=== PATIENT | female | born 1970 | race African-American/Black ===

== ENCOUNTER 2016-08-19 19:03 | Emergency (ER) | payer OTHER ==
[~2016-08-19] VITALS: Ht 167.6 cm; Wt 148.8 kg
[2016-08-19] MEDS ORDERED: MOBIC15 MG PO ×2 (19:08→19:58)
[2016-08-19] MEDS ORDERED: ZANTAC 150MG T150 MG PO (19:08)
[2016-08-19] MEDS ORDERED: HYDROCHLOROTH12.5 M1 PO (19:09)
[2016-08-19] MEDS ORDERED: LIORESAL 10 MG10 MG PO (19:58)
[2016-08-19] MEDS ORDERED: ZANAFLEX4 MG PO (20:02)
== END 2016-08-19 20:07 | disposition home or self-care (01) ==
LOC: ER 19:03
DX: S16.1XXA Strain of muscle, fascia and tendon at neck level, initial encounter (principal); S80.01XA Contusion of right knee, initial encounter; S40.011A Contusion of right shoulder, initial encounter; I10 Essential (primary) hypertension; V43.52XA Car driver injured in collision with other type car in traffic accident, initial encounter; Y93.I9 Activity, other involving external motion; Y92.488 Other paved roadways as the place of occurrence of the external cause; Y99.9 Unspecified external cause status

== ENCOUNTER → 2018-06-09 | Outpatient (CLI) | payer OTHER ==
[~2018-06-09] MED LIST: BENICAR40 MG PO; HYDROCHLOROTH12.5 M1 PO; LIORESAL 10 MG10 MG PO; MOBIC15 MG PO; TRAMADOL 50 MG50 MG PO; ZANAFLEX4 MG PO; ZANTAC 150MG T150 MG PO
[2018-06-09 08:02] LABS: ABSOLUTE NEUTROPHILS 6.8 thou/uL (1.4-8.2); BASOPHILS 0.7 % (0.0-2.0); EOSINOPHILS 1.7 % (0.0-3.0); HEMATOCRIT 39.9 % (37.0-47.0); HEMOGLOBIN 13.1 gm/dL (12.0-15.0); LYMPHOCYTES 26.8 % (24.0-44.0); MCH 30.4 pg (26.0-34.0); MCV 92.3 fL (80.0-100.0); MONOCYTES 9.3 % (1.0-8.0); PLATELET COUNT 478 thou/uL (150-400); POLYS 61.5 % (36.0-66.0); RBC 4.32 mil/uL (4.20-5.00); RDW 13.4 % (10.5-14.5); WBC 11.1 thou/uL (4.0-11.0)
[2018-06-09 08:41] LABS: ALBUMIN 3.6 g/dL (3.4-5.0); CALCIUM 9.7 mg/dL (8.5-10.1); CREATININE 1.1 mg/dL (0.6-1.0); TOTAL BILIRUBIN 0.9 mg/dL (<0.1-1.0); TOTAL PROTEIN 7.8 g/dL (6.4-8.2)
== END ==
LOC: CV 07:37
PROVIDERS: Surgery
DX: Z01.818 Encounter for other preprocedural examination (principal)

== ENCOUNTER 2018-06-14 05:35 | Inpatient (IN) | payer OTHER ==
--- NOTE | 2018-06-09 08:44 | EKG ---
[place] [address] [facility] [place] [address] ELECTROCARDIOGRAM REPORT Name: SPENCER MALLORY Room #: PRE [facility]..#: [id number] ������������������ Admission: ������������������ Attend Phys: Jamarcus Powell MD, Discharge: ������������������ Date of : 72 Report #: [id number] ����������������������������������������������������������������� [id number] THIS REPORT FOR: //name// [facility] Test Date: 2018-06-09 Test Time: 08:23:58 Pat Name: SPENCER MALLORY Department: Room: Gender: F Stoker Erector: : 1970 Requested By: Jamarcus Powell Order Number: [id number] MD: Kapil Brown Measurements Intervals [place] Rate: 90 P: 85 [place]: 172 QRS: 70 QRSD: 90 T: -13 QT: 436 QTc: 534 Interpretive Statements Sinus rhythm Nonspecific ST and T wave abnormality Prolonged QT interval Compared to ECG 02/17/2003 20:07:56 Nonspecific change in the ST and T-wave segments Prolonged QT interval now present Electronically Signed On 06-09-2018 8:43:54 EDDY CURRENT INSPECTOR by Kapil Brown [email or web address] ��������������������������������������������� <ELECTRONICALLY SIGNED> ���������������������������������������� By: Kapil Brown MD, [facility] ��������������������������������������������� 06/09/18 0843 2 Kapil Brown MD, [facility] /EPI
[~2018-06-14] VITALS: Ht 167.6 cm; Wt 148.1 kg
[2018-06-14 07:41] LABS: HEMATOCRIT 39.7 % (37.0-47.0); HEMOGLOBIN 13.1 gm/dL (12.0-15.0)
[2018-06-14 08:31] VITALS: BP 147/88
[2018-06-14 12:19] VITALS: BP 153/85
[2018-06-14 16:00] VITALS: BP 152/75
[2018-06-14 19:42] VITALS: BP 146/74
--- NOTE | 2018-06-14 19:46 | NUR ---
PT ARRIVED ON UNIT HAD LAPARSCOPIC SLEEVE. PER DR FLEMING . PT ALERT XS 4 SLEEPY AND GIVEN PRN PAIN MED FLUIDS STATRTED AND IV ABT. PT STRICT I&O. DAUGHTER AT BEDSIDE.
[2018-06-15 00:20] VITALS: BP 140/74
[2018-06-15 05:00] VITALS: BP 132/69
[2018-06-15 05:34] LABS: HEMOGLOBIN 12.4 gm/dL (12.0-15.0); MCH 30.3 pg (26.0-34.0); MCHC 32.6 g/dL (28.0-37.0); MCV 93.1 fL (80.0-100.0); RBC 4.08 mil/uL (4.20-5.00); RDW 13.4 % (10.5-14.5)
[2018-06-15 05:44] LABS: CALCIUM 8.1 mg/dL (8.5-10.1); POTASSIUM 4.3 mmol/L (3.5-5.1)
--- NOTE | 2018-06-15 06:10 | NUR ---
ASSUMED CARE AT 1900, ASSESSMENT COMPLETED. PT DROWSY BUT AROUSEABLE, CALLS APPROPRIATELY FOR NEEDS. PAIN HAS BEEN MANAGED WITH SCHEDULE TORADOL, BUT DID REQUIRE ONE DOSE OF DILAUDID AFTER GETTING UP TO TOILET. NAUSEA HAS BEEN WELL CONTROLLED WITH SCHEDULED MEDS, BOWEL SOUNDS HYPOACTIVE. DENIES SOB, ENCOURAGED USING I.S. FIVE LAP SITES C/D/I WITH DERMABOND. CALLED RADIOLOGY THIS AM TO REMIND SHE IS TO HAVE UPPER GI EVAL. IV FLUIDS INFUSING OVERNIGHT, SCD'S ON, NO OTHER CONCERNS, WILL CONTINUE TO MONITOR.
--- NOTE | 2018-06-15 07:36 | NUR ---
ASSUMED CARE OF PT AT 0700. PT LEFT VIA WHEELCHAIR IN STABLE CONDITION FOR BARRIUM SWALLOW TEST. WILL WAIT FOR RETURN.
[2018-06-15 08:37] VITALS: BP 121/66
--- NOTE | 2018-06-15 08:45 | NUR ---
RETURNED IN STABLE CONDITION. ASSESSMENT COMPLETED. A&O,X4. ROOM AIR. DENIES SOA OR CHEST PAIN. C/O RIGHT ABD PAIN, NO PAIN MEDS REQUESTED AT THIS TIME. 5 LAP SITES WITH DERMABOND INTACT, NO BLEEDING OR DRAINAGE. SKIN INTACT. PT IS RESTING IN BED NOW. WILL CONTINUE TO MONITOR.
--- NOTE | 2018-06-15 09:59 | NUR ---
Pt provided with discharge diet instruction bedside post sleeve gastrectomy for weeks 1&2. Handouts were left with Pt and can be located in Bariatric Handbook. Pt left with triage nurse information and handout on medications and wt restrictions were also provided. Denies any questions at this time. Describes some pain and very sleepy. This RD will remain available PRN for Pt to contact.
[2018-06-15 10:08] VITALS: BP 121/66
--- NOTE | 2018-06-15 12:47 | NUR ---
NEW DISCHARGE ORDERS. PAIN WELL CONTROLLED WITH PAIN MEDS, NO NAUSEA. LAP SITES INTACT. DISCHARGE INFORMATION DISCUSSED AT BEDSIDE WITH DAUGHTER AND PATIENT. SCRIPTS GIVEN TO PATIENT PRIOR TO SURGERY. IV X2 REMOVED, NO BLEEDING. ALL BELONGINGS COLLECTED. PT LEFT IN STABLE CONDITION VIA WHEELCHAIR AT APPROX 12:30.
--- NOTE | 2018-06-17 11:08 | PATH ---
[facility] [address] [place] [address] PATHOLOGY RPT PROCEDURE Name: SPENCER MALLORY Room #: 432-P [facility] IN M.R.#: [id number] ������������������ Admission: 06/14/18 ������������������ Date of : 72 Discharge: 06/15/18 Report #: [id number] Path Case #: [id number] [facility] Accession Number: [id number] . 01 Material submitted: . STOMACH . 01 Clinical history: . Morbid obesity . 02 Diagnosis: Stomach, gastric sleeve, laparoscopic sleeve gastrectomy: - No diagnostic abnormalities, history of morbid obesity. . (IUV:mml; 06/15/2018) QLM/06/15/2018 . 02 Electronically signed: . Luisa Vora MD, Pathologist NPI- [id number] . 01 Gross description: . The specimen is received in formalin, labeled "Spencer Mallory, stomach status post gastric sleeve". Received is a partial gastrectomy specimen with a stapled margin of resection measuring 17.4 x 5.1 x 2.2 cm in greatest dimensions. The serosal surface is pink-red and smooth in appearance. Opening the specimen reveals a pink-red mucosa with normal rugal folds. No distinct nodules or lesions are noted grossly. The specimen is submitted representatively in cassette A1. (CAA; 06/14/2018) QAC/QAC . 02 Pathologist provided ICD-10: E66.01 . 02 CPT . 122805 Specimen Comment: A courtesy copy of this report has been sent to Specimen Comment: [phone], . Specimen Comment: Report sent to / DR HEATH Specimen Comment: A duplicate report has been generated due to demographic updates. Performed at: [address] [id number] MD Jose Pacheco MD Phone: [phone] Performed at: [address] [place] [address] PATHOLOGY RPT PROCEDURE Name: SPENCER MALLORY PIA Room #: 432-P [facility] IN M.R.#: [id number] ������������������ Admission: 06/14/18 ������������������ Date of : 72 Discharge: 06/15/18 Report #: [id number] Path Case #: [id number] [facility] [place] [phone] MD Luisa Vora MD Phone: [phone]
--- NOTE | 2018-07-04 21:44 | O ---
[facility] [place] [address] OPERATIVE REPORT Name: SPENCER MALLORY Room #: 432-P [facility] IN M.R.#: [id number] Admission: 06/14/18 ������������������ Attend Phys: Jamarcus Powell MD, Discharge: 06/15/18 ������������������ Date of : 72 Report #: [id number] THIS REPORT FOR: //name// CC: Ladi Powell DATE OF SERVICE: 06/14/2018 PREOPERATIVE DIAGNOSES: 1. Morbid obesity with a BMI of greater than 50. 2. Lumbago. 3. Chronic fatigue. 4. Gastroesophageal reflux disease. 5. Chronic bilateral lower extremity joint pain. 6. Hypertension. 7. Obstructive sleep apnea POSTOPERATIVE DIAGNOSES: 1. Morbid obesity with a BMI of greater than 50. 2. Lumbago. 3. Chronic fatigue. 4. Gastroesophageal reflux disease. 5. Chronic bilateral lower extremity joint pain. 6. Hypertension. 7. Obstructive sleep apnea PROCEDURES PERFORMED: 1. Laparoscopic sleeve gastrectomy. 2. Thorough esophagogastroduodenoscopy (EGD). SURGEON: Jamarcus Powell M.D. PLATE MILL MILL HAND: Alfredo Milian DO. ANESTHESIA: General endotracheal anesthesia. ESTIMATED BLOOD LOSS: Minimal (less than 10 mL). COMPLICATIONS: None appreciated. SPECIMENS: Gastric sleeve resection specimen to pathology. INDICATIONS: The patient is a 47-year-old morbidly obese -[place] female who has been seen for her desire for weight loss surgery as she has had a very long history of obesity and has tried numerous weight loss attempts, all to no avail. The patient has been seen by her primary care physician, a [facility] [address] [place] [address] OPERATIVE REPORT Name: SHAWNEEWEDNESDAY PIA Room #: 432-P [facility] IN ..#: [id number] Admission: 06/14/18 ������������������ Attend Phys: Jamarcus Powell MD, Discharge: 06/15/18 ������������������ Date of : 72 Report #: [id number] shipping team leader and a psychologist, who have all cleared her for bariatric surgery as well as indicating it is medically necessary for long-term weight loss and assistance with resolution of her comorbid conditions. The patient has also undergone in a thorough diet and exercise attempt under my direction for several months, all to no avail. As such, indication was for the above-mentioned procedures today. DESCRIPTION OF PROCEDURE: After explaining the risks, benefits and alternatives of the procedure with the patient in detail in the preoperative holding area and obtaining written consent, the patient was brought to the operating room and placed supine on the operating room table. After conducting a thorough timeout procedure verifying correct patient and procedure, the patient was given general endotracheal anesthesia. Once adequate anesthesia was attained, her SCDs were hooked up to pneumatic compression device. She was given a preoperative dose of antibiotics in line with the SCIP protocol. The patient's abdomen was prepped and draped in a standard surgical sterile fashion. The Mtimen upper endoscope was used to intubate the oropharynx. This was traversed easily down into the duodenum where a slow careful withdrawal showed no evidence of duodenitis, gastritis, esophagitis, mass lesions or ulcerations. A retroflexion view showed no hiatal hernia. The scope was straightened out with its tip at the level of pylorus where it was taped into position, the stomach was fully desufflated. After sterilely scrubbing and entering the operative field, 5 mL of 0.5% Marcaine with epinephrine were used to anesthetize the skin in the right mid abdomen, 5 cm cephalad to the umbilicus and 5 cm to the patient's right. A #15 bladed scalpel was used to create a 1.5 cm transverse skin incision at this location. A 15 mm Visiport was placed over 0 degree 5 mm laparoscope and was introduced through this incision site. Once intra-abdominal placement was verified visually, the obturator for the trocar and laparoscope were both removed and the abdomen was insufflated to 15 mmHg using carbon dioxide gas. The laparoscope was changed to a 5-mm 30-degree laparoscope, which was reintroduced through this trocar. The entire abdomen was evaluated to ensure no injury upon entry. I now placed three additional 5 mm trocars under direct vision. The first was placed 2 cm cephalad to the umbilicus and 2 cm to the patient's left, an additional one was placed 5 cm lateral to that, and a final one was placed in the extreme left lateral flank. All three additional trocars were placed under direct vision after anesthetizing the skin at each location with 5 mL of 0.5% Marcaine with epinephrine and I had created small skin nicks using a #15 bladed scalpel. The laparoscope was removed and changed to the 5 mm trocar just cephalad to the umbilicus and the patient was placed in steep reverse Trendelenburg position. I then placed a Luis liver retractor in the subxiphoid location by anesthetizing the skin at that location with 5 mL of 0.5% Marcaine with epinephrine and I had created small skin jaylyn using a #15 bladed scalpel. The Luis retractor was maneuvered through this defect where it was positioned up under the left lobe of the liver and was held up against the posterior aspect of the anterior abdominal wall and fixed into position using the Iron Doll Eye Setter device to stabilize it. We now had complete [facility] [address] [place] [address] OPERATIVE REPORT Name: SPENCER MALLORY Room #: 432-P [facility] IN M.R.#: [id number] Admission: 06/14/18 ������������������ Attend Phys: Jamarcus Powell MD, Discharge: 06/15/18 ������������������ Date of : 72 Report #: [id number] access to the stomach and hiatal regions and saw no evidence of a hiatal hernia once again. I now started my dissection after identifying our landmarks. The vein of Lisa was identified overlying the pylorus. I measured 4 cm proximal to this location and began taking down the short gastric arteries from this location all the way up the greater curvature of the stomach using Harmonic scalpel for hemostasis. Once I arrived upon the base of the left angelika, I dissected anteriorly up the left angelika with the Harmonic scalpel for hemostasis as well. All posterior gastric attachments were taken down. The Capron 60 mm stapler with a black load utilizing Stinson's Cara-Strip buttressing material placed over it was entered into the abdomen where the first firing started at the location 4 cm proximal to the pylorus. This fired right along, but not extremely tight to the scope, so as not to cause stricturing, especially at the incisura. An additional firing of another black load utilizing Stinson's Cara-Strip buttressing material was carried out following the scope as a 34-Indian bougie. Five additional firings, all green loads, all utilizing Stinson's Cara-Strip buttressing material were carried out following the scope as a bougie all the way up to the left angelika until the stomach was completely transected. This left an excellently oriented sleeve of gastric remnant with no twisting and complete hemostasis. The resection specimen was placed in the right upper quadrant for future retrieval and 10 mL of Tisseel on the Uruutspray device were used to coat the entirety of the staple line with fibrin glue. The resection specimen was then removed via the 15 mm incision and this was closed using 0 PDS suture on the Luis Armando-Riya suture passer device under direct vision. The EGD scope was reactivated and slowly withdrawn evaluating the staple line from the inside and we saw complete hemostasis and no bubbling in the Tisseel, thereby signifying a negative leak test. The scope was removed via the oropharynx, passed off the field. The Luis liver retractor was removed under direct vision and the liver was healthy and uninjured. One final evaluation of the intra-abdominal domain showed no further evidence of pathology. The abdomen was fully desufflated. All remaining trocars were removed under direct vision. A 4-0 Monocryl was used in a standard subcuticular fashion for all skin incisions and Dermabond glue was applied to all skin wounds. The corner of the resection specimen that had been removed was trimmed away and 1250 mL of normal saline was passively instilled into the resection specimen itself. At the end of the procedure, all instrument, needle and sponge counts were correct. The patient tolerated the procedure without incident, was awakened in the operating room and transitioned to the recovery room in stable condition with no apparent complications. ��������������������������������������������� <ELECTRONICALLY SIGNED> ���������������������������������������� By: Jamarcus Powell MD, FACS ��������������������������������������������� 07/04/18 2144 1350 1724 Jamarcus Powell MD, FACS /nt
== END 2018-06-15 12:23 | disposition home or self-care (01) | DRG 621 ==
LOC: TBA 05:35 → OR 05:35 → TBA 05:36 → OR 07:37 → 4E 12:16 → OR 12:16 → ENTRNSPT 06-15 12:12 → EDTRNSPTSTS 06-15 12:14 → 4E 06-15 12:23
PROVIDERS: ADMIT Surgery
PROC: 0DJ08ZZ Inspection of Upper Intestinal Tract, Via Natural or Artificial Opening Endoscopic (ICD-10-PCS; principal; 2018-06-14)
PROC: 0DB64Z3 Excision of Stomach, Percutaneous Endoscopic Approach, Vertical (ICD-10-PCS; principal; 2018-06-14)
DX: E66.01 Morbid (severe) obesity due to excess calories (principal); K21.9 Gastro-esophageal reflux disease without esophagitis; I10 Essential (primary) hypertension; G47.33 Obstructive sleep apnea (adult) (pediatric)
CPT/HCPCS: 10783; 50010; 50101; 50222; 50249; 50386; 50555; 50739; 50740; 50962; 51437; 52182; 52265; 53307; 53311; 54022; 54118; 56462; 56525; 56526; 57092; 62110; 62900; 70005

== ENCOUNTER → 2018-07-06 | Outpatient (CLI) | payer OTHER | LOC: ULTRA 08:14 | DX: I74.2 Embolism and thrombosis of arteries of the upper extremities (principal); E66.8 Other obesity; K21.9 Gastro-esophageal reflux disease without esophagitis; I10 Essential (primary) hypertension; G47.33 Obstructive sleep apnea (adult) (pediatric); M19.90 Unspecified osteoarthritis, unspecified site; Z68.43 Body mass index [BMI] 50.0-59.9, adult; Z98.890 Other specified postprocedural states; Z82.49 Family history of ischemic heart disease and other diseases of the circulatory system; Z83.3 Family history of diabetes mellitus ==

== ENCOUNTER 2018-08-19 07:33 | Emergency (ER) | payer OTHER ==
[~2018-08-19] VITALS: Ht 167.6 cm; Wt 127.0 kg
[2018-08-19 09:50] LABS: ABSOLUTE NEUTROPHILS 5.1 thou/uL (1.4-8.2); BASOPHILS 0.5 % (0.0-2.0); EOSINOPHILS 2.7 % (0.0-3.0); HEMATOCRIT 37.7 % (37.0-47.0); HEMOGLOBIN 12.8 gm/dL (12.0-15.0); LYMPHOCYTES 27.5 % (24.0-44.0); MCH 31.6 pg (26.0-34.0); MCHC 33.8 g/dL (28.0-37.0); MCV 93.4 fL (80.0-100.0); MONOCYTES 10.6 % (1.0-8.0); PLATELET COUNT 334 thou/uL (150-400); POLYS 58.7 % (36.0-66.0); RBC 4.04 mil/uL (4.20-5.00); RDW 15.2 % (10.5-14.5); WBC 8.7 thou/uL (4.0-11.0)
[2018-08-19 10:14] LABS: CALCIUM 8.4 mg/dL (8.5-10.1); CREATININE 0.9 mg/dL (0.6-1.0)
[2018-08-19 10:15] LABS: MAGNESIUM 1.7 mg/dL (1.8-2.4)
[2018-08-19 13:26] VITALS: BP 123/67
== END 2018-08-19 13:27 | disposition home or self-care (01) ==
LOC: ER 07:33
PROVIDERS: Emergency Medicine
DX: E87.6 Hypokalemia (principal); E83.42 Hypomagnesemia; I10 Essential (primary) hypertension; K21.9 Gastro-esophageal reflux disease without esophagitis; Z90.49 Acquired absence of other specified parts of digestive tract